=== PATIENT | female | born 1940 | race Caucasian/White ===

== ENCOUNTER 2016-10-12 16:32 | Emergency (ER) | payer MEDICARE ==
[~2016-10-12 16:32] MED LIST: CYCL5TAB PO; HYDR-971 PO
[2016-10-12 16:50] VITALS: BP 155/72
[2016-10-12] MEDS ORDERED: KETOROLAC 15 MG/ML VIAL. IV ONE (18:15)
[2016-10-12] MEDS ORDERED: LIDOCAINE (700MG/PATCH) PATCH. TD ONE (18:15)
[2016-10-12] MEDS ORDERED: ONDANSETRON PF 4 MG/2 ML VIAL. IV ONE (18:15)
[2016-10-12 18:41] LABS: BASO % 0 % (0-3); EOS % 0 % (0-3); HEMATOCRIT 37.9 % (36.0-47.0); HEMOGLOBIN 12.8 g/dL (12.0-15.5); LYMPH % 11 % (24-48); MEAN CORPUSCULAR HEMOGLOBIN 30 pg (25-35); MEAN CORPUSCULAR HGB CONC 34 g/dL (31-37); MEAN CORPUSCULAR VOLUME 87 fL (79-100); MONO # 0.5 x10^3/uL (0.0-1.1); MONO % 6 % (0-9); NEUT # 7.3 x10^3uL (1.8-7.7); NEUT % 82 % (31-73); PLATELET COUNT 225 x10^3/uL (140-400); RED BLOOD COUNT 4.34 x10^6/uL (3.50-5.40); RED CELL DISTRIBUTION WIDTH 13.3 % (11.5-14.5)
[2016-10-12 18:59] LABS: ALBUMIN 4.4 g/dL (3.4-5.0); ALBUMIN/GLOBULIN RATIO 1.2 (1.0-1.7); CALCIUM 9.5 mg/dL (8.5-10.1); CREATININE 0.6 mg/dL (0.6-1.0); GFR 97.5; POTASSIUM 3.7 mmol/L (3.5-5.1); TOTAL BILIRUBIN 0.5 mg/dL (0.2-1.0); TOTAL PROTEIN 8.1 g/dL (6.4-8.2)
--- NOTE | 2016-10-12 19:16 | RAD ---
Ribs right with PA chest History: Pain PA view of the chest and dedicated views of the left ribs were obtained. The heart and pulmonary vessels appear normal. The lungs and pleural margins are clear. The visualized osseous structures appear intact. There is old rib fractures on the left. This calcified granuloma in the lungs. Impression: No acute findings. No evidence of a bony displaced rib fracture. Electronically signed by: Arnoldo Corbin III, MD (10/12/2016 7:13 PM) [facility]
[2016-10-12] MEDS ORDERED: CYCL5TAB PO (20:19)
[2016-10-12] MEDS ORDERED: NAPR250T2 PO (20:19)
--- NOTE | 2016-10-12 21:08 | ED.ADGEN ---
Past History Past Medical History: Hypertension Past Surgical History: Other Alcohol Use: Occasionally Drug Use: None Adult General HPI HPI Patient is a 75-year-old woman, with history of hypertension, which she takes medications of that she is compliant, presents to the emergency department complaining of right-sided rib pain. Patient states that the pain began when she was attempting to open a window several hours prior to arrival in the ED. Patient states that the window was stuck due to swelling of the wet from humidity, and she had to push very hard with a little finally open. She initially stated that she was experiencing no other symptoms, however during my evaluation she stated that she was feeling nauseous as well, and that the pain did spread around to the anterior portion of her chest and felt like a "pressure ". She states that the pain has gradually worsened over the past several hours. Se denies any previous injuries, states she had similar symptoms on another occasion she was diagnosed with costochondritis. She states the pain is not worsened by deep inspiration but is worse with movement, especially when she raises her arm above her head. 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 She denies any weakness, numbness or tingling. No shortness of breath, no vomiting, no lightheadedness or dizziness, no falls or other injuries. She is not taking any medication for pain prior to coming to the ED. Denies any swelling extremities, history of DVT or PE, states she has been compliant with her medications. Review of Systems Review of Systems Constitutional: Denies fever or chills [] Eyes: Denies change in visual acuity, redness, or eye pain [] HENT: Denies nasal congestion or sore throat [] Respiratory: Denies cough or shortness of breath [] Cardiovascular: No additional information not addressed in HPI [] GI: Denies abdominal pain, vomiting, bloody stools or diarrhea. Nausea. : Denies dysuria or hematuria [] Musculoskeletal: Denies back pain, complaining of pain in the lateral right chest radiating to the anterior portion chest [] Integument: Denies rash or skin lesions [] Neurologic: Denies headache, focal weakness or sensory changes [] Endocrine: Denies polyuria or polydipsia [] Current Medications Current Medications Current Medications Medications (Trade) Dose Ordered Sig/Sakina Start Time Stop Time Status Last Admin Dose Admin Ketorolac Tromethamine (Toradol) 10 mg 1X ONCE 10/12/16 18:15 10/12/16 18:20 DC 10/12/16 18:56 10 MG Lidocaine (Lidoderm) 1 patch 1X ONCE 10/12/16 18:15 10/12/16 18:20 DC 10/12/16 18:57 1 PATCH Ondansetron HCl (Zofran) 4 mg 1X ONCE 10/12/16 18:15 10/12/16 18:20 DC 10/12/16 18:57 4 MG Allergies Allergies Allergies Coded Allergies Type Severity Reaction Last Updated Verified No Known Drug Allergies 07/11/15 No Physical Exam Physical Exam Constitutional: Well developed, well nourished, no acute distress, non-toxic appearance. [] HENT: Normocephalic, atraumatic, bilateral external ears normal, oropharynx moist, no oral exudates, nose normal. [] Eyes: PERRLA, EOMI, conjunctiva normal, no discharge. [] Neck: Normal range of motion, no tenderness, supple, no stridor. [] Cardiovascular:Heart rate regular rhythm, no murmur , S1, S2, rubs or gallops. Patient with chest tenderness noted between ribs 6 and 7 on the right lateral wall, no sternal signs of trauma, no tissue tension. No crepitus. [] Lungs & Thorax: Bilateral breath sounds clear to auscultation, no wheezing, no rhonchi or rales. [] Abdomen: Bowel sounds normal, soft, no tenderness, no masses, no pulsatile masses. [] Skin: Warm, dry, no erythema, no rash. [] Back: No tenderness, no CVA tenderness. [] Extremities: No tenderness, no cyanosis, no clubbing, ROM intact, no edema. Negative Homans sign. [] Neurologic: Alert and oriented X 3, normal motor function, normal sensory function, no focal deficits noted. [] Psychologic: Affect normal, judgement normal, mood normal. [] Current Patient Data Lab Results Laboratory Tests Test 10/12/16 18:25 White Blood Count 9.0 x10^3/uL (4.0-11.0) Red Blood Count 4.34 x10^6/uL (3.50-5.40) Hemoglobin 12.8 g/dL (12.0-15.5) Hematocrit 37.9 % (36.0-47.0) Mean Corpuscular Volume 87 fL (79-100) Mean Corpuscular Hemoglobin 30 pg (25-35) Mean Corpuscular Hemoglobin Concent 34 g/dL (31-37) Red Cell Distribution Width 13.3 % (11.5-14.5) Platelet Count 225 x10^3/uL (140-400) Neutrophils (%) (Auto) 82 % (31-73) H Lymphocytes (%) (Auto) 11 % (24-48) L Monocytes (%) (Auto) 6 % (0-9) Eosinophils (%) (Auto) 0 % (0-3) Basophils (%) (Auto) 0 % (0-3) Neutrophils # (Auto) 7.3 x10^3uL (1.8-7.7) Lymphocytes # (Auto) 1.0 x10^3/uL (1.0-4.8) Monocytes # (Auto) 0.5 x10^3/uL (0.0-1.1) Eosinophils # (Auto) 0.0 x10^3/uL (0.0-0.7) Basophils # (Auto) 0.0 x10^3/uL (0.0-0.2) Sodium Level 138 mmol/L (136-145) Potassium Level 3.7 mmol/L (3.5-5.1) Chloride Level 98 mmol/L (98-107) Carbon Dioxide Level 31 mmol/L (21-32) Anion Gap 9 (6-14) Blood Urea Nitrogen 14 mg/dL (7-20) Creatinine 0.6 mg/dL (0.6-1.0) Estimated GFR (Cockcroft-Gault) 97.5 BUN/Creatinine Ratio 23 (6-20) H Glucose Level 110 mg/dL (70-99) H Calcium Level 9.5 mg/dL (8.5-10.1) Total Bilirubin 0.5 mg/dL (0.2-1.0) Aspartate Amino Transferase (AST) 21 U/L (15-37) Alanine Aminotransferase (ALT) 30 U/L (14-59) Alkaline Phosphatase 92 U/L (46-116) Troponin I Quantitative < 0.017 ng/mL (0-0.055) MG-Btr-H-Type Natriuretic Peptide 404 pg/mL (0-449) Total Protein 8.1 g/dL (6.4-8.2) Albumin 4.4 g/dL (3.4-5.0) Albumin/Globulin Ratio 1.2 (1.0-1.7) EKG EKG EC: Sinus rhythm, heart rate 72 beats are minute, upright axis, QTC of 437, ND 160, QRS of 92, no ST elevations or depressions, no evidence of acute ST abnormalities. As interpreted by me. [] Radiology/Procedures Radiology/Procedures [] Course & Med Decision Making Course & Med Decision Making Pertinent Labs and Imaging studies reviewed. (See chart for details) Patient's history and examination are most consistent with musculoskeletal source. However due to patient's vague complaints of nausea, and gradually worsening pain, in conjunction with her age and history of hypertension, some concern for a possible atypical cardiac presentation. Patient initially told me that she was feeling nausea before the pain started, but now is stating that it began after the pain started. She is agreeable with additional evaluation to address other concerning causes for symptoms Chest x-ray including rib series of the right was unremarkable for any acute rib fractures, patient noted to have healed left-sided rib fractures. Patient with unremarkable laboratory studies, including negative initial troponin, and a negative repeat 4 hour troponin the ED, patient more than 6 hours out from onset of symptoms. Patient did receive Toradol in the ED, with resolution of her pain, is ambulating without difficulty in the emergency department. Patient states that she is feeling much better, is not having any symptoms at this time, and is anxious to be discharged home. Did discuss with patient the findings as above, no evidence of a concerning cause for the patient's symptoms, consistent with recurrent costochondritis with muscle strain, will discharge with cyclobenzaprine, which she has taken previously for similar issues with good effect without issues, along with precautions regarding sedation, and naproxen, with NSAID precautions. Patient voiced understanding and agreement, or stomach stable condition with plan and precautions as above, prescription as stated. Final Impression Final Impression [][address] [address] IMAGING REPORT Signed PATIENT: YUDELKA ESPITIA ACCOUNT: [id number] : 1940 LOCATION: ER AGE: 75 SEX: F EXAM STATUS: REG ER ORD. PHYSICIAN: GINA BARBA DO REASON: Chest wall pain PROCEDURE: RIBS RIGHT AND PA CHEST Ribs right with PA chest History: Pain PA view of the chest and dedicated views of the left ribs were obtained. The heart and pulmonary vessels appear normal. The lungs and pleural margins are clear. The visualized osseous structures appear intact. There is old rib fractures on the left. This calcified granuloma in the lungs. Impression: No acute findings. No evidence of a bony displaced rib fracture. Electronically signed by: Renny Patino III, MD (10/12/2016 7:13 PM) [facility] DICTATED AND SIGNED BY: RENNY PATINO III, MD DATE: 10/12/161910 CC: BERNARDINO BRUMFIELD; GINA BARBA DO ~ Problems: Dragon Disclaimer Dragon Disclaimer This electronic medical record was generated, in whole or in part, using a voice recognition dictation system. Departure: Impression: Primary Impression: Costochondritis Disposition: HOME, SELF-CARE Condition: IMPROVED Scripts Naproxen (NAPROXEN) 250 Mg Tablet 250 MG PO PRN BID Y for MUSCLE PAIN, #10 TAB Prov: GINA BARBA DO 10/12/16 Cyclobenzaprine Hcl (CYCLOBENZAPRINE HCL) 5 Mg Tablet 1 TAB PO TID Y for MUSCLE SPASMS, #12 TAB Prov: GINA BARBA DO 10/12/16 GINA BARBA DO Oct 12, 2016 21:08
--- NOTE | 2016-10-13 15:04 | EKG ---
[address] [address] Test Date: 2016-10-12 Test Time: 16:55:00 Pat Name: YUDELKA ESPITIA Department: Room: Gender: F Globe Tester: KYMBERLY : 1940 Requested By: GINA BARBA Order Number: [id number] Reading MD: Franco Mills Measurements Intervals [place] Rate: 72 P: 36 FL: 160 QRS: 24 QRSD: 92 T: 25 QT: 398 QTc: 437 Interpretive Statements SINUS RHYTHM Electronically Signed On 10-14-2016 9:48:49 CDT by Franco Mills
== END 2016-10-12 21:13 | disposition home or self-care (01) ==
LOC: ER 16:32
DX: M94.0 Chondrocostal junction syndrome [Tietze] (principal); I10 Essential (primary) hypertension
CPT/HCPCS: 36415; 71101; 80053; 83880; 84484; 85025; 93005; 96374; 96375; 99285; J1885; J2405

== ENCOUNTER 2019-08-11 10:42 | Emergency (ER) | payer MEDICARE ==
[~2019-08-11] VITALS: Ht 154.9 cm; Wt 86.3 kg
[~2019-08-11 10:42] MED LIST changes: +HYDR-3165 PO; -HYDR-971 PO; +NAPR250T6 PO
[2019-08-11] MEDS ORDERED: CLINDAMYCIN 900 MG/6 ML VIAL. IM ONE (11:15)
--- NOTE | 2019-08-11 11:42 | PHYS DOC ---
Past History Past Medical History: Hypertension Past Surgical History: No Surgical History Alcohol Use: None Drug Use: None General Adult EDM: Chief Complaint: CELLULITIS HPI: HPI: Patient is a [id number] female presenting to the ED with a chief complaint of cellulitis to her right lower extremity. Patient states that the symptoms are not present for the last 3 to 4 months. Patient states that it started as a small blister and then she was tried a take care of it and then it became swollen and tender in the right lower leg. Patient denies fever, chills, nausea, vomiting, chest pain, shortness of breath. Patient denies smoking but does state that she drinks almost every day. Patient has not seen a physician about the cellulitis of the right lower extremity. Review of Systems: Review of Systems: Constitutional: Denies fever or chills Eyes: Denies change in visual acuity HENT: Denies nasal congestion or sore throat Respiratory: Denies cough or shortness of breath Cardiovascular: Denies chest pain or edema GI: Denies abdominal pain, nausea, vomiting, bloody stools or diarrhea : Denies dysuria Musculoskeletal: Complains of swelling and tenderness and redness to the right lower extremity Neurologic: Denies headache, focal weakness or sensory changes Heart Score: Risk Factors: Risk Factors: DM, Current or recent (<one month) smoker, HTN, HLP, family history of CAD, obesity. Risk Scores: Score 0 - 3: 2.5% MACE over next 6 weeks - Discharge Home Score 4 - 6: 20.3% MACE over next 6 weeks - Admit for Clinical Observation Score 7 - 10: 72.7% MACE over next 6 weeks - Early Invasive Strategies Current Medications: Current Meds: Current Medications Medications (Trade) Dose Ordered Sig/Sakina Start Time Stop Time Status Last Admin Dose Admin Clindamycin Phosphate (Cleocin) 600 mg 1X ONCE 08/11/19 11:15 08/11/19 11:16 UNV Allergies: Allergies: Allergies Coded Allergies Type Severity Reaction Last Updated Verified No Known Drug Allergies 07/11/15 No Physical Exam: PE: Constitutional: Well developed, well nourished, no acute distress, non-toxic appearance. [] HENT: Normocephalic, atraumatic Eyes: EOMI Neck: Normal range of motion, Supple Cardiovascular:Heart rate regular rhythm Lungs & Thorax: Bilateral breath sounds clear to auscultation [] Abdomen: Bowel sounds normal, soft, no tenderness Extremities: There is swelling, erythema, warmth and tenderness to the right lower extremity. Does not extend to the right foot. Neurologic: Alert and oriented X 3 EKG: EKG: [] Radiology/Procedures: Radiology/Procedures: [] Course & Med Decision Making: Course & Med Decision Making Pertinent Labs reviewed. (See chart for details) Ordered labs and antibiotics in the ER. Patient does not have any sirs criteria. Patient will be tried on oral antibiotics for outpatient treatment. I have instructed the patient to return to the ED in 2 days if symptoms do not start to resolve. Patient is also instructed to return to the ED if she develops a fever, vomiting or has any concerns. Discussed results and plan of care with patient. Patient is instructed to follow up with PCP in one to 2 days. Appropriate discharge instructions given to patient to return to the ED or to seek immediate medical evaluation. Patient is instructed to return to the ED if symptoms worsen or if any concerns. Dragon Disclaimer: Dragon Disclaimer: This electronic medical record was generated, in whole or in part, using a voice recognition dictation system. Departure Departure: Impression: Primary Impression: Cellulitis of right leg without foot Disposition: HOME/RESIDENCE PRIOR TO ADM Condition: STABLE Referrals: PILLO VIDES MD (PCP) Patient Instructions: Cellulitis Additional Instructions: Discussed results and plan of care with patient. Patient is instructed to follow up with PCP in one to 2 days. Appropriate discharge instructions given to patient to return to the ED or to seek immediate medical evaluation. Patient is instructed to return to the ED if symptoms worsen or if any concerns. Scripts Clindamycin Hcl (CLINDAMYCIN HCL) 300 Mg Capsule 1 CAP PO TID for CEllulitis, #30 CAP Prov: CARL HOOD DO 08/11/19 Justification of Admission: Justification of Admission: Justification of Admission Dx: No CARL HOOD DO Aug 11, 2019 11:42
[2019-08-11] MEDS ORDERED: CLIN300C8 PO (11:55)
[2019-08-11 12:32] LABS: BASO % 1 % (0-3); EOS # 0.1 x10^3/uL (0.0-0.7); EOS % 1 % (0-3); HEMATOCRIT 34.9 % (36.0-47.0); HEMOGLOBIN 11.6 g/dL (12.0-15.5); LYMPH # 1.4 x10^3/uL (1.0-4.8); LYMPH % 26 % (24-48); MEAN CORPUSCULAR HEMOGLOBIN 29 pg (25-35); MEAN CORPUSCULAR HGB CONC 33 g/dL (31-37); MEAN CORPUSCULAR VOLUME 87 fL (79-100); MONO # 0.7 x10^3/uL (0.0-1.1); MONO % 13 % (0-9); NEUT # 3.2 x10^3uL (1.8-7.7); NEUT % 59 % (31-73); PLATELET COUNT 267 x10^3/uL (140-400); RED BLOOD COUNT 3.99 x10^6/uL (3.50-5.40); RED CELL DISTRIBUTION WIDTH 13.4 % (11.5-14.5); WHITE BLOOD COUNT 5.5 x10^3/uL (4.0-11.0)
[2019-08-11 12:37] LABS: CALCIUM 8.6 mg/dL (8.5-10.1); CREATININE 0.7 mg/dL (0.6-1.0); GFR 80.9; POTASSIUM 3.4 mmol/L (3.5-5.1)
[2019-08-11 12:43] LABS: ALBUMIN 3.2 g/dL (3.4-5.0); ALBUMIN/GLOBULIN RATIO 0.8 (1.0-1.7); TOTAL PROTEIN 7.2 g/dL (6.4-8.2)
[2019-08-11 12:46] LABS: TOTAL BILIRUBIN 0.3 mg/dL (0.2-1.0)
[2019-08-11 13:17] VITALS: BP 116/55
== END 2019-08-11 13:16 | disposition home or self-care (01) ==
LOC: ER 10:42
DX: L03.115 Cellulitis of right lower limb (principal); R60.0 Localized edema; L53.9 Erythematous condition, unspecified; I10 Essential (primary) hypertension; Z79.899 Other long term (current) drug therapy
CPT/HCPCS: 36415; 80053; 85025; 87040; 87071; 87075; 96372; 99283

== ENCOUNTER 2021-04-03 11:14 | Emergency (ER) | payer MEDICARE ==
[~2021-04-03] VITALS: Ht 154.9 cm; Wt 86.3 kg
[~2021-04-03 11:14] MED LIST changes: +CLIN-95 PO; +NAPR-699 PO; -NAPR250T6 PO
[2021-04-03 11:36] VITALS: BP 144/82
--- NOTE | 2021-04-03 11:54 | PHYS DOC ---
Past History Past Medical History: Hypertension Additional Past Medical Histor: compression fx, lymphedema bilateral legs (TAHIRA VANESSA APRN) Past Surgical History: No Surgical History (TAHIRA VANESSA APRN) Smoking: Non-smoker Alcohol Use: None Drug Use: None (TAHIRA VANESSA APRN) General Adult EDM: Chief Complaint: BACK PAIN - NO INJURY HPI: HPI: Patient is an 80-year-old female that presents today with low back pain. Patient states low back pain started 3 to 4 weeks ago after working a shift at work where she states they were short handed and she had to work extra long hours, she said the pain is in her low back and radiates to her right leg, she states she has some numbness in her right leg but that is ongoing as she has had compression fractures in the past and has had low back pain in the past. Patient does use a cane on a regular basis to ambulate, and she continues to use it today. She denies falls, she denies any painful or frequency in urination, she also denies inability to void or problems with defecation. She did call Dr. Vides who is her primary care physician's office and they called in a pres ription for hydrocodone for her on March 28, 2021 but she states that is just causing her to be sleepy and not helping a lot with her pain. She said she went to Dr. Vides's office today and he is out of town and they recommended if she is having this much pain to go to the emergency department. (TAHIRA VANESSA APRN) Review of Systems: Review of Systems: Constitutional: Denies fever or chills Eyes: Denies change in visual acuity HENT: Denies nasal congestion or sore throat Respiratory: Denies cough or shortness of breath Cardiovascular: Denies chest pain or edema GI: Denies abdominal pain, nausea, vomiting, bloody stools or diarrhea : Denies dysuria Musculoskeletal: Low back pain Integument: Denies rash Neurologic: Denies headache, focal weakness or sensory changes Endocrine: Denies polyuria or polydipsia Lymphatic: Denies swollen glands Psychiatric: Denies depression or anxiety (TAHIRA VANESSA APRN) Allergies: Allergies: Allergies Coded Allergies Type Severity Reaction Last Updated Verified No Known Drug Allergies 07/11/15 No (TAHIRA VANESSA APRN) Physical Exam: PE: Constitutional: Well developed, well nourished, no acute distress, non-toxic appearance. [] HENT: Normocephalic, atraumatic, bilateral external ears normal, oropharynx moist, no oral exudates, nose normal. [] Eyes: PERRLA, EOMI, conjunctiva normal, no discharge. [] Neck: Normal range of motion, no tenderness, supple, no stridor. [] Cardiovascular:Heart rate regular rhythm, no murmur [] Lungs & Thorax: Bilateral breath sounds clear to auscultation [] Abdomen: Bowel sounds normal, soft, no tenderness, no masses, no pulsatile masses. [] Skin: Warm, dry, no erythema, no rash. [] Back: Patient has pain with palpation along the low back area around the SI joints she also has some numbness and tingling in her right hip that has some numbness and tingling to the right leg as well, she has no foot drop, she is able to ambulate with a cane which is her normal, she does have 4+ pitting edema bilateral legs which is her normal, sensory is intact distal to the pain. Extremities: No tenderness, no cyanosis, no clubbing, ROM intact, no edema. [] Neurologic: Alert and oriented X 3, normal motor function, normal sensory function, no focal deficits noted. [] Psychologic: Affect normal, judgement normal, mood normal. [] (TAHIRA VANESSA APRN) Current Patient Data: Vital Signs: Vital Signs Date Time Temp Pulse Resp B/P (MAP) Pulse Ox O2 Delivery O2 Flow Rate FiO2 04/03/21 11:36 97.8 69 18 144/82 (102) 95 (TAHIRA VANESSA APRN) EKG: EKG: [] (TAHIRA VANESSA APRN) Radiology/Procedures: Radiology/Procedures: REASON: low back pain with hx of compression fx PROCEDURE: CT LUMBAR SPINE WO CONTRAST EXAM: CT lumbar spine without IV contrast CLINICAL HISTORY:Reason: low back pain with hx of compression fx COMPARISON: None available. TECHNIQUE: Helical CT was performed through the lumbar spine. Axial, coronal and sagittal reformatted images were generated. PQRS compliance statement - One or more of the following individualized dose r eduction techniques were utilized for this study: 1. Automated exposure control 2. Adjustment of the mA and/or kV according to patient size 3. Use of iterative reconstruction technique FINDINGS: Approximately 15 percent height loss of the superior endplate of L5 with superior endplate irregularity consistent with acute fracture. Coronal plane extends to the L5-S1 space. Small posterior retropulsion of the superior endplate results in mild central canal stenosis. Multilevel facet degenerative changes are seen. Mild L2-3, L3-4 disc height loss. Moderate L5-S1 disc height loss. Facet degenerative changes bilaterally. Degenerative changes between the posterior spinous processes. Decreased bone density. Posterolateral abdominal wall hernia containing portions of the Gerota's fat. IMPRESSION: 1. Acute L5 compression fracture with trace posterior retropulsion of the posterior wall. 2. Multilevel degenerative changes. Electronically signed by: Angel Appiah MD (04/03/2021 12:19 PM) [id number][] (TAHIRA VANESSA APRN) Heart Score: C/O Chest Pain: N/A Risk Factors: Risk Factors: DM, Current or recent (<one month) smoker, HTN, HLP, family history of CAD, obesity. Risk Scores: Score 0 - 3: 2.5% MACE over next 6 weeks - Discharge Home Score 4 - 6: 20.3% MACE over next 6 weeks - Admit for Clinical Observation Score 7 - 10: 72.7% MACE over next 6 weeks - Early Invasive Strategies (TAHIRA VANESSA APRN) Course & Med Decision Making: Course & Med Decision Making Pertinent Labs and Imaging studies reviewed. (See chart for details) [address] Vides's office and spoke to Donovan at their office, she states that they can follow-up with her in the office, to cloud her images to [facility], and to provide pain medications for her and they will follow up in the office next week for further management of her compression fractures. Patient is agreeable to this plan of care, she is requesting that medications be sent to the [facility] here in town and that she will get those and she will follow- up on Thursday or next week for further management. Patient was encouraged that if she has any problems with falling increased numbness or tingling in her right leg or any other concerns that she should return to the emergency department for further evaluation. She verbalized understanding of this. (TAHIRA VANESSA APRN) Dragon Disclaimer: Dragon Disclaimer: This electronic medical record was generated, in whole or in part, using a voice recognition dictation system. (TAHIRA VANESSA APRN) Attending Co-Sign The patient was seen and interviewed as well as examined at the bedside. The chart was reviewed. The case was discussed. Agree with the plan of care. (JAYSON CARPIO DO) Departure Departure: Impression: Primary Impression: Compression fracture of L5 vertebra Qualified Codes: S32.050A - Wedge compression fracture of fifth lumbar vertebra, initial encounter for closed fracture Disposition: HOME / SELF CARE / HOMELESS Condition: STABLE Referrals: PILLO VIDES MD (PCP) Patient Instructions: Back, Compression Fracture Additional Instructions: Tramadol take 1 to 2 tablets every 6 hours as needed for pain, use with caution may cause drowsiness and constipation. If you are taking pain medication please start a bowel regimen such as a stool softener on a daily basis, increase by mouth fluids Follow-up with your primary care physician Dr. Vides on Thursday for further management of her compression fractures Return to the emergency department if you have increased back pain, you are having difficulty walking or you have fallen, or you have numbness and tingling in that right leg that is worsening. Scripts Tramadol Hcl (TRAMADOL HCL) 50 Mg Tablet 50 MG PO PRN Q6HRS PRN for PAIN, #30 TAB Prov: TAHIRA VANESSA APRN 04/03/21 TAHIRA VANESSA APRN Apr 03, 2021 11:54 JAYSON CARPIO DO Apr 05, 2021 08:32
[2021-04-03] MEDS ORDERED: KETOROLAC 30 MG/ML VIAL. IM ONE (12:00)
[2021-04-03 12:21] LABS: BACTERIA,URINE 0 /HPF (0-FEW); CLARITY,URINE CLEAR; COLOR,URINE YELLOW; GLUCOSE,URINE NEG (NEG); NITRITE,URINE NEG (NEG); RBC,URINE OCC /HPF (0-2); SQUAMOUS EPITHELIAL CELL,UR MANY /LPF; UROBILINOGEN,URINE 0.2 mg/dL (0.2 mg/dL)
--- NOTE | 2021-04-03 12:22 | RAD ---
EXAM: CT lumbar spine without IV contrast CLINICAL HISTORY:Reason: low back pain with hx of compression fx COMPARISON: None available. TECHNIQUE: Helical CT was performed through the lumbar spine. Axial, coronal and sagittal reformatted images were generated. PQRS compliance statement - One or more of the following individualized dose reduction techniques wer e utilized for this study: 1. Automated exposure control 2. Adjustment of the mA and/or kV according to patient size 3. Use of iterative reconstruction technique FINDINGS: Approximately 15 percent height loss of the superior endplate of L5 with superior endplate irregulari ty consistent with acute fracture. Coronal plane extends to the L5-S1 space. Small posterior retropul tashi of the superior endplate results in mild central canal stenosis. Multilevel facet degenerative c hanges are seen. Mild L2-3, L3-4 disc height loss. Moderate L5-S1 disc height loss. Facet degenerative changes bilater ally. Degenerative changes between the posterior spinous processes. Decreased bone density. Posterolateral abdominal wall hernia containing portions of the Gerota's fat. IMPRESSION: 1. Acute L5 compression fracture with trace posterior retropulsion of the posterior wall. 2. Multilevel degenerative changes. Electronically signed by: Angel Appiah MD (04/03/2021 12:19 PM) [id number]
[2021-04-03] MEDS ORDERED: TRAM50TA PO (13:15)
== END 2021-04-03 13:23 | disposition home or self-care (01) ==
LOC: ER 11:14
DX: S32.050A Wedge compression fracture of fifth lumbar vertebra, initial encounter for closed fracture (principal); I10 Essential (primary) hypertension; X58.XXXA Exposure to other specified factors, initial encounter; Y93.89 Activity, other specified; Y92.89 Other specified places as the place of occurrence of the external cause; Y99.8 Other external cause status
CPT/HCPCS: 72131; 81001; 87086; 96372; 99284; J1885

== ENCOUNTER → 2021-05-28 | Outpatient (CLI) | payer MEDICARE ==
[~2021-05-28] MED LIST changes: +TRAM50TA PO
--- NOTE | 2021-05-28 17:07 | RAD ---
DXA BONE DENSITY AXIAL History: Postmenopausal Comparison: None. TECHNIQUE: Dual energy x-ray absorptiometry of the lumbar spine and right hip was performed. T-score of average bone mineral density based was calculated based on standard deviations above or below the expected young adult normal value. Diagnostic definitions were established by the [employer]. FINDINGS: The average bone mineral density associated with L1-L4 is 0.987 g/cm^2, corresponding with a T-score of -1.6. The average total bone mineral density associated with right hip is 0.766 g/cm^2, corresponding with a T-score of -1.5. Refer to the worksheets for full detail. IMPRESSION: 1. Osteopenia. Average bone mineral density yields a T-score between -1.0 and -2.5. Fracture risk is increased. Electronically signed by: Manohar Gasca MD (05/28/2021 5:04 PM) [id number]
== END ==
LOC: DXRAD 12:56
PROVIDERS: ATTEND Internal Medicine
DX: S32.050A Wedge compression fracture of fifth lumbar vertebra, initial encounter for closed fracture (principal); M85.80 Other specified disorders of bone density and structure, unspecified site; M85.88 Other specified disorders of bone density and structure, other site; X58.XXXA Exposure to other specified factors, initial encounter; Y93.89 Activity, other specified; Y92.89 Other specified places as the place of occurrence of the external cause; Y99.8 Other external cause status
CPT/HCPCS: 77080

== ENCOUNTER → 2021-06-12 | Outpatient (CLI) | payer MEDICARE ==
--- NOTE | 2021-06-12 16:58 | RAD ---
EXAM: LUMBAR SPINE 3 VIEWS. HISTORY: Compression fracture COMPARISON: 04/03/2021. FINDINGS: There is a moderate superior endplate compression fracture at L5. Height loss appears uncha nged since recent CT. Developing sclerosis of the L5 vertebral body is consistent with healing respon se. Alignment appears maintained. Osteopenia is at least moderate. Endplate remodeling and vacuum phenome na indicate mild diffuse lumbar degenerative disc disease. 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 IMPRESSION: 1. Stable moderate height loss at L5. Sclerosis of the vertebral body as with healing response. Electronically signed by: Jong Gaines MD (06/12/2021 4:55 PM) [id number]
== END ==
LOC: RAD 13:39
PROVIDERS: ATTEND Physician Assistant
DX: S32.050A Wedge compression fracture of fifth lumbar vertebra, initial encounter for closed fracture (principal); M47.817 Spondylosis without myelopathy or radiculopathy, lumbosacral region; M51.36 Other intervertebral disc degeneration, lumbar region; M51.26 Other intervertebral disc displacement, lumbar region; M85.88 Other specified disorders of bone density and structure, other site; X58.XXXA Exposure to other specified factors, initial encounter; Y93.89 Activity, other specified; Y92.89 Other specified places as the place of occurrence of the external cause; Y99.8 Other external cause status
CPT/HCPCS: 72100